=== PATIENT | female | born 1970 | race Two or more races ===

== ENCOUNTER 2021-05-10 06:10 | Inpatient (IN) | payer OTHER ==
[~2021-05-10] VITALS: Ht 157.5 cm; Wt 54.4 kg
[~2021-05-10 06:10] MED LIST: NASAL MIST126 ML; SYNTHROID100 MCG PO; SYNTHROID112 MCG PO; VITAMIN D3 PO
[2021-05-10] MEDS ORDERED: VITAMIN D310 MC4 PO (13:22)
== END 2021-05-11 10:35 | disposition home or self-care (01) | DRG 735 ==
LOC: CIR.AMB 06:10 → OB/GYN 12:44 → O/R 12:44 → OB/GYN 14:04
PROVIDERS: ADMIT Obstetrics & Gynecology Gynecologic Oncology; ATTEND Obstetrics & Gynecology Gynecologic Oncology
PROC: 0DNW4ZZ Release Peritoneum, Percutaneous Endoscopic Approach (ICD-10-PCS; 2021-05-10)
PROC: 0UT24ZZ Resection of Bilateral Ovaries, Percutaneous Endoscopic Approach (ICD-10-PCS; 2021-05-10)
PROC: 0UT74ZZ Resection of Bilateral Fallopian Tubes, Percutaneous Endoscopic Approach (ICD-10-PCS; 2021-05-10)
PROC: 3E1M38Z Irrigation of Peritoneal Cavity using Irrigating Substance, Percutaneous Approach (ICD-10-PCS; 2021-05-10)
PROC: 07TC4ZZ Resection of Pelvis Lymphatic, Percutaneous Endoscopic Approach (ICD-10-PCS; principal; 2021-05-10 09:50)
DX: N83.12 Corpus luteum cyst of left ovary (principal); N83.292 Other ovarian cyst, left side; N83.291 Other ovarian cyst, right side; Z20.822 Contact with and (suspected) exposure to COVID-19; N73.6 Female pelvic peritoneal adhesions (postinfective)